=== PATIENT | female | born 1955 | race Caucasian/White ===

== ENCOUNTER 2018-05-10 12:25 | Inpatient (IN) | payer OTHER ==
[2018-05-10] MEDS: HYDROmorphONE 1 MG/ML SYG IV (13:12)
[2018-05-10] MEDS ORDERED: ONDANSETRON 4 MG INJ IV (14:30)
[2018-05-10] MEDS ORDERED: HYDROCODONE/APAP (5/325) TAB PO (14:30)
[2018-05-10] MEDS ORDERED: NACL 0.9% 3 ML SYG IV (14:30)
[2018-05-10] MEDS ORDERED: ZOLPIDEM 5 MG TAB PO (14:30)
[2018-05-10] MEDS ORDERED: morphine 2 MG INJ IV (14:30)
[2018-05-10] MEDS: ACETAMINOPHEN 325 MG TAB PO (17:46)
[2018-05-10] MEDS: predniSONE 20 MG TAB PO (21:05)
[2018-05-10] MEDS: GABAPENTIN 100 MG CAP PO (21:05)
[2018-05-10] MEDS: HYDROmorphONE 0.5 MG/0.5 ML SYG IV (22:24)
[2018-05-11 05:47] LABS: ADD MAN DIFF? NO
[2018-05-11 05:52] LABS: WHITE BLOOD COUNT 10.1 10^3/ul (4.8-10.8)
[2018-05-11 05:52] LABS: BASOPHILS % 0.1 % (0.0-2.0); HEMATOCRIT 45.2 % (37.0-47.0); HEMOGLOBIN 14.5 g/dl (12.0-16.0); LYMPHOCYTES # 1.2 10^3/ul (0.8-2.9); LYMPHOCYTES % 11.9 % (15.0-51.0); MEAN CORPUSCULAR HEMOGLOBIN 28.3 pg (29.0-33.0); MEAN CORPUSCULAR HGB CONC 32.1 g/dl (32.0-37.0); MEAN CORPUSCULAR VOLUME 88.3 fl (82.0-101.0); MEAN PLATELET VOLUME 10.6 fl (7.4-10.4); MONOCYTE # 0.4 10^3/ul (0.3-0.9); MONOCYTES % 3.5 % (0.0-11.0); NEUTROPHIL # 8.5 10^3/ul (1.6-7.5); NEUTROPHILS % 84.1 % (39.0-77.0); PLATELET COUNT 281 10^3/UL (140-415); RED BLOOD COUNT 5.12 10^6/ul (4.20-5.40); RED CELL DISTRIBUTION WIDTH 14.1 % (11.5-14.5)
[2018-05-11] MEDS: PANTOPRAZOLE (EC) 40 MG TAB PO (05:56)
[2018-05-11 06:24] LABS: ANION GAP 14 (8-16); BLOOD UREA NITROGEN 19 mg/dl (7-20); CARBON DIOXIDE 24 mmol/L (21-31); CHLORIDE 108 mmol/L (97-110); CREATININE 0.55 mg/dl (0.44-1.00); GLUCOSE 145 mg/dl (70-220); MAGNESIUM 2.2 mg/dl (1.7-2.5); PHOSPHORUS 3.3 mg/dl (2.5-4.9); POTASSIUM 4.9 mmol/L (3.5-5.1); SODIUM 141 mmol/L (135-144)
[2018-05-11 06:31] LABS: HEMOGLOBIN A1C 5.6 % (0-5.9)
[2018-05-11] MEDS: GABAPENTIN 100 MG CAP PO ×3 (09:00→20:33)
[2018-05-11] MEDS: FOLIC ACID 1 MG TAB PO (09:37)
[2018-05-11] MEDS: ASPIRIN 81 MG TAB PO (09:37)
[2018-05-11] MEDS: predniSONE 20 MG TAB PO (09:37)
[2018-05-11] MEDS: ENOXAPARIN 40 MG/0.4 ML SYG SC (09:38)
[2018-05-11] MEDS ORDERED: morphine LIQ (10 MG/5 ML) CUP PO (14:30)
[2018-05-11] MEDS: LORAZEPAM 0.5 MG TAB PO (19:44)
[2018-05-12] MEDS: PANTOPRAZOLE (EC) 40 MG TAB PO (06:26)
[2018-05-12] MEDS: GABAPENTIN 100 MG CAP PO ×3 (09:18→20:41)
[2018-05-12] MEDS: FOLIC ACID 1 MG TAB PO (09:18)
[2018-05-12] MEDS: predniSONE 20 MG TAB PO (09:18)
[2018-05-12] MEDS: ASPIRIN 81 MG TAB PO (09:18)
[2018-05-12] MEDS: ENOXAPARIN 40 MG/0.4 ML SYG SC (09:19)
[2018-05-13] MEDS: PANTOPRAZOLE (EC) 40 MG TAB PO (05:55)
[2018-05-13] MEDS: FOLIC ACID 1 MG TAB PO (08:58)
[2018-05-13] MEDS: ASPIRIN 81 MG TAB PO (08:58)
[2018-05-13] MEDS: ENOXAPARIN 40 MG/0.4 ML SYG SC (09:00)
[2018-05-13] MEDS: GABAPENTIN 100 MG CAP PO ×3 (09:00→20:41)
[2018-05-13] MEDS: SOD CHLORIDE 0.9% 100 ML (18:28)
[2018-05-13] MEDS: IODIXANOL LOCM 100 ML BTL (18:28)
[2018-05-13] MEDS: DOCUSATE SODIUM 100 MG CAP PO (20:41)
[2018-05-13] MEDS: AL HYDROX/MG HYDROX/SIMETH 30 ML CUP PO (21:18)
[2018-05-14] MEDS: PANTOPRAZOLE (EC) 40 MG TAB PO (05:59)
[2018-05-14 07:10] LABS: ADD UMIC NO; UR ASCORBIC ACID NEGATIVE (NEGATIVE); UR BILIRUBIN (Dip) NEGATIVE (NEGATIVE); UR BLOOD (Dip) NEGATIVE (NEGATIVE); UR CLARITY CLEAR (CLEAR); UR COLOR YELLOW (YELLOW); UR GLUCOSE (Dip) NEGATIVE (NEGATIVE); UR KETONES (Dip) NEGATIVE (NEGATIVE); UR LEUKOCYTE ESTERASE (Dip) NEGATIVE Leu/ul (NEGATIVE); UR NITRITE (Dip) NEGATIVE (NEGATIVE); UR SPECIFIC GRAVITY (Dip) 1.021 (1.003-1.030); UR TOTAL PROTEIN (Dip) NEGATIVE (NEGATIVE); UR UROBILINOGEN (Dip) NEGATIVE (NEGATIVE)
[2018-05-14] MEDS: FOLIC ACID 1 MG TAB PO (08:46)
[2018-05-14] MEDS: GABAPENTIN 100 MG CAP PO (08:47)
[2018-05-14] MEDS: ASPIRIN 81 MG TAB PO (08:47)
[2018-05-14] MEDS: ENOXAPARIN 40 MG/0.4 ML SYG SC (08:48)
[2018-05-14] MEDS: MAGNESIUM HYDROXIDE 30ML CUP PO (08:48)
== END 2018-05-14 15:15 | disposition home or self-care (01) | DRG 552 ==
LOC: MS1 12:25
DX: M51.16 Intervertebral disc disorders with radiculopathy, lumbar region (principal); D45 Polycythemia vera; K21.9 Gastro-esophageal reflux disease without esophagitis; Z86.73 Personal history of transient ischemic attack (TIA), and cerebral infarction without residual deficits; Z79.82 Long term (current) use of aspirin
CPT/HCPCS: 72146; 72148; 73700; 80048; 81003; 83036; 83735; 84100; 85025; 87086; 93970; 97110; 97116; 97162

== ENCOUNTER 2018-05-18 15:33 | Outpatient (CLI) | payer OTHER | END 2018-05-18 16:27 | disposition home or self-care (01) | LOC: DCC 15:33 | DX: M79.662 Pain in left lower leg (principal); M79.661 Pain in right lower leg; D45 Polycythemia vera; K27.9 Peptic ulcer, site unspecified, unspecified as acute or chronic, without hemorrhage or perforation; Z86.73 Personal history of transient ischemic attack (TIA), and cerebral infarction without residual deficits; Z88.0 Allergy status to penicillin; D64.9 Anemia, unspecified | CPT/HCPCS: G0463 ==